=== PATIENT | male | born 1965 | race Hispanic/Latino ===

== ENCOUNTER → 2022-01-06 | Day surgery (SDC) | payer OTHER ==
[~2022-01-06] MED LIST: FENTANYL CITRATE/PF 100MCG/2 ML INJ ONE; HYOSCYAMINE SULFATE 0.5 MG/ML INJ ONE; INSULIN REGULAR, HUMAN 100 UNIT/1 ML ONE; LIPITOR20 MG PO; LISINOPRIL10 MG PO; METFORMIN HCL500 MG PO; MIDAZOLAM HCL 2 MG/2 ML VIAL ONE; NOVOLOG100 UNIT/1 SQ; PROPOFOL IV EMULSION 10 MG/ML 20 ML VIAL ONE; VITAMIN D
[2022-01-06 13:10] VITALS: BP 112/75
== END | disposition home or self-care (01) ==
LOC: OR 09:00
PROVIDERS: ATTEND Internal Medicine Gastroenterology
DX: K59.09 Other constipation (principal); D12.0 Benign neoplasm of cecum; D12.2 Benign neoplasm of ascending colon; D12.3 Benign neoplasm of transverse colon; D12.5 Benign neoplasm of sigmoid colon; K64.8 Other hemorrhoids; R10.10 Upper abdominal pain, unspecified; Z71.3 Dietary counseling and surveillance; G47.33 Obstructive sleep apnea (adult) (pediatric); E11.9 Type 2 diabetes mellitus without complications; E66.01 Morbid (severe) obesity due to excess calories; I10 Essential (primary) hypertension; Z01.810 Encounter for preprocedural cardiovascular examination; Z01.812 Encounter for preprocedural laboratory examination; Z20.822 Contact with and (suspected) exposure to COVID-19; Z79.4 Long term (current) use of insulin; Z79.899 Other long term (current) drug therapy; Z68.34 Body mass index [BMI] 34.0-34.9, adult
CPT/HCPCS: 36415; 45380; 45384; 45385; 82948; 93005; J1980; J2250; J2704; J3010; U0002; 45378; J1817

== ENCOUNTER 2023-02-11 18:13 | Emergency (ER) | payer OTHER ==
[~2023-02-11] VITALS: Ht 172.7 cm; Wt 106.6 kg
[~2023-02-11 18:13] MED LIST changes: -FENTANYL CITRATE/PF 100MCG/2 ML INJ ONE; -HYOSCYAMINE SULFATE 0.5 MG/ML INJ ONE; -INSULIN REGULAR, HUMAN 100 UNIT/1 ML ONE; -MIDAZOLAM HCL 2 MG/2 ML VIAL ONE; -PROPOFOL IV EMULSION 10 MG/ML 20 ML VIAL ONE
[2023-02-11] MEDS ORDERED: HYDROCODONE/APAP 7.5MG-325MG 1 EA TAB PO PRN (18:30)
[2023-02-11] MEDS ORDERED: NAPROXEN 250 MG TAB PO ONE (18:30)
[2023-02-11] MEDS ORDERED: METHOCARBAMOL 500 MG TAB PO ONE (18:30)
[2023-02-11] MEDS ORDERED: NAPROSYN500 MG PO (18:48)
[2023-02-11] MEDS ORDERED: METHOCARBAMOL750 MG PO (18:48)
[2023-02-11 20:11] VITALS: BP 177/90
== END 2023-02-11 19:30 | disposition home or self-care (01) ==
LOC: ER 18:17
DX: M25.59 Pain in other specified joint (principal); M54.6 Pain in thoracic spine; I10 Essential (primary) hypertension; E11.9 Type 2 diabetes mellitus without complications; E78.5 Hyperlipidemia, unspecified; G89.29 Other chronic pain
CPT/HCPCS: 99282